=== PATIENT | male | born 1970 | race Caucasian/White ===

== ENCOUNTER 2017-11-10 22:17 | Emergency (ER) | payer SELFPAY ==
[~2017-11-10] VITALS: Ht 170.2 cm; Wt 103.0 kg
[2017-11-11 00:13] LABS: BASOPHILS % 0.9 % (0.0-2.0); EOSINOPHILS % 3.7 % (0.0-5.0); HEMATOCRIT. 42.4 % (42.0-52.0); LYMPHOCYTES % 52.1 % (20.0-50.0); MEAN CORPUSCULAR HEMOGLOBIN 30.5 pg (28.0-32.0); MEAN CORPUSCULAR VOLUME 86.1 fL (80.0-94.0); MEAN PLATELET VOLUME 8.6 fl (7.4-10.4); MONOCYTES % 7.7 % (2.0-8.0); NEUTROPHILS % 35.6 % (40.0-76.0); PLATELET 216 x1000/uL (130-400); RED BLOOD CELL COUNT 4.93 mill/uL (4.7-6.1); RED CELL DISTRIBUTION WIDTH 13.2 % (11.6-14.6)
[2017-11-11 00:23] LABS: CHLORIDE 102 mEq/L (98-107)
[2017-11-11 00:35] LABS: *AMPHETAMINES SCREEN URINE NEGATIVE (NEGATIVE); *BARBITURATES SCREEN URINE NEGATIVE (NEGATIVE); *BENZODIAZEPINES SCREEN URINE PRESUMTIVE POSITIVE (NEGATIVE); *COCAINE SCREEN URINE NEGATIVE (NEGATIVE); METHADONE URINE SCREEN NEGATIVE (NEGATIVE); OPIATES URINE SCREEN NEGATIVE (NEGATIVE)
[2017-11-11 00:36] LABS: CANNABINOID URINE SCREEN NEGATIVE (NEGATIVE); PHENCYCLIDINE URINE SCREEN NEGATIVE (NEGATIVE)
[2017-11-11 01:14] LABS: D-DIMER 0.78 mg/L FEU (<0.50); INR 1.2
[2017-11-11 01:15] LABS: PROTHROMBIN TIME 11.7 sec (9.1-11.1)
[2017-11-11] MEDS ORDERED: POTASSIUM CHLORIDE 20MEQ TABLET SR PO SCH (02:36)
[2017-11-11 04:15] VITALS: BP 115/113
[2017-11-11] MEDS ORDERED: KETOROLAC 30MG/ML VIAL IV SCH (04:30)
[2017-11-11] MEDS ORDERED: IOHEXOL-350 100 ML BOTTLE ONE (14:05)
[2017-11-12 09:08] LABS: ABSOLUTE BASOPHILS 0.1 x10E3/uL (0.0-0.2); ABSOLUTE EOSINOPHILS 0.2 x10E3/uL (0.0-0.4); ABSOLUTE LYMPHOCYTES 3.1 x10E3/uL (0.7-3.1); ABSOLUTE MONOCYTES 0.4 x10E3/uL (0.1-0.9); ABSOLUTE NEUTROPHILS 2.4 x10E3/uL (1.4-7.0); BASOPHILS 1 % (Not Estab.); HEMATOCRIT 44.7 % (37.5-51.0); HEMOGLOBIN 14.5 g/dL (13.0-17.7); IMMATURE GRANULOCYTES 1 % (Not Estab.); LYMPHOCYTES 49 % (Not Estab.); MEAN CORPUSCULAR HEMOGLOBIN 29.6 pg (26.6-33.0); MEAN CORPUSCULAR HGB CONC. 32.4 g/dL (31.5-35.7); MEAN CORPUSCULAR VOLUME 91 fL (79-97); MONOCYTES 7 % (Not Estab.); NEUTROPHILS 39 % (Not Estab.); PLATELETS 225 x10E3/uL (150-379); RED CELL DISTRIBUTION WIDTH 14.1 % (12.3-15.4); WBC 6.2 x10E3/uL (3.4-10.8)
[2017-11-13 13:10] LABS: % CD 4 POS. LYMPHOCYTES 47.7 % (30.8-58.5); % CD 8 POS. LYMPH 13.4 % (12.0-35.5); ABSOLUTE CD 3 1891 /uL (622-2402); ABSOLUTE CD 4 HELPER 1479 /uL (359-1519); ABSOLUTE CD 8 SUPPRESSOR 415 /uL (109-897); CD4/CD8 RATIO 3.56 (0.92-3.72)
== END 2017-11-11 04:54 | disposition left against medical advice (07) ==
LOC: ER 22:38 → CANBEDREQ 11-11 07:19
DX: R07.89 Other chest pain (principal); R79.1 Abnormal coagulation profile; F41.9 Anxiety disorder, unspecified; I10 Essential (primary) hypertension; E87.6 Hypokalemia
CPT/HCPCS: 36415; 71045; 80053; 80305; 83605; 83880; 84484; 85025; 85379; 85610; 85730; 86359; 86360; 93005; 99285; Q9967; Z7610